=== PATIENT | female | born 1960 | race Caucasian/White ===

== ENCOUNTER 2017-08-18 14:51 | Emergency (ER) | payer OTHER ==
[~2017-08-18] VITALS: Ht 160 cm; Wt 66.2 kg
[2017-08-18 14:58] VITALS: Ht 160 cm; Wt 66.2 kg
[2017-08-18 17:15] VITALS: BP 115/72
== END 2017-08-18 17:35 | disposition home or self-care (01) ==
LOC: ED 14:51
DX: R10.13 Epigastric pain (principal); R11.10 Vomiting, unspecified; I10 Essential (primary) hypertension; E78.00 Pure hypercholesterolemia, unspecified; Z88.6 Allergy status to analgesic agent; Z88.8 Allergy status to other drugs, medicaments and biological substances
CPT/HCPCS: J2550